=== PATIENT | female | born 1945 | race Caucasian/White ===

== ENCOUNTER 2017-12-21 06:03 | Day surgery (SDC) | payer MEDICARE ==
[~2017-12-21 06:03] MED LIST: Buffered Lidocaine 0.9% SYRIN* 5 ML/SYR SYRINGE INTRADERM ONE
[2017-12-21] MEDS ORDERED: ceFAZolin 2 GM in NS PREMIX(*) 2 GM/100 ML BAG IVPB ONE (06:23)
[2017-12-21] MEDS ORDERED: Buffered Lidocaine 0.9% SYRIN* 5 ML/SYR SYRINGE ONE (06:23)
[2017-12-21] MEDS ORDERED: Bupivacaine 0.5% W/EPI SDV* 30 ML VIAL ONE (07:14)
[2017-12-21] MEDS ORDERED: Lidocain 1% EPI 1:100,000 * 30 ML MDV ONE (07:14)
[2017-12-21] MEDS ORDERED: Mineral Oil Sterile, TOPICAL* 25 ML BTL ONE (07:14)
[2017-12-21] MEDS ORDERED: Bupivacaine 0.25% SDV PF* 10 ML VIAL INJ ONE (07:35)
[2017-12-21] MEDS ORDERED: Midazolam* 1 MG/ML 2 ML VIAL (2 MG) ONE ×2 (07:39→08:01)
[2017-12-21] MEDS ORDERED: fentaNYL* 50 MCG/ML 2 ML VIAL (100 MCG VIAL) ONE (07:39)
[2017-12-21] MEDS ORDERED: Naloxone* 0.4 MG/ML 1 ML VIAL IV PRN (07:58)
[2017-12-21 09:01] VITALS: BP 105/61
== END 2017-12-21 09:24 | disposition home or self-care (01) ==
LOC: OR 06:03
PROVIDERS: ATTEND Plastic Surgery
DX: D03.61 Melanoma in situ of right upper limb, including shoulder (principal); Z85.3 Personal history of malignant neoplasm of breast
CPT/HCPCS: 88305; A9270-GY; J0690; J2250; J3010; J3490